=== PATIENT | male | born 1945 | race Hispanic/Latino ===

== ENCOUNTER 2016-08-24 19:43 | Emergency (ER) | payer MEDICARE ==
--- NOTE | 2016-08-24 20:36 | Emergency Department Report ---
HPI - General Chief Complaint: Extremity Problem,Nontraumatic Time Seen by Provider: 08/24/16 20:01 - HPI HPI: This is a 71-year-old Afro-[place] male presents the emergency department via [facility] a [facility] with the complaint of possible swollen right hand and arm. The patient himself appears to have some level of dementia and is currently AAO [address] not time. Therefore he is a poor historian and has no complaints. Allegedly his son visited him today and thought the arm appeared warm and swollen and sent him in for further evaluation. Based on the patient's medications he does appear to have some history of dementia, hypertension, BPH and previously was here for arthritis. As of February of last year the patient was on Eloquist but I'm unsure as to when he takes it for. ED Past Medical Hx - Past Medical History Hx Hypertension: Yes Hx Dementia: Yes Additional medical history: unsteady gait, gout - Social History Smoking Status: Unknown if ever smoked Substance Use Type: None - Medications Home Medications: Home Medications Medication Instructions Recorded Confirmed Last Taken Type LORazepam [Ativan] 0.5 mg PO BID PRN 03/06/16 08/24/16 03/05/16 History Budesoni/Formotero 160-4.5(Nf) 2 puff IH BID #1 03/09/16 08/24/16 08/23/16 Rx [Symbicort 160-4.5 (Nf)] Donepezil [Aricept] 5 mg PO BID #60 03/09/16 08/24/16 08/23/16 Rx Folic Acid [Folvite] 1 mg PO QDAY #30 03/09/16 08/24/16 08/23/16 Rx Lisinopril [Zestril TAB] 20 mg PO QDAY #30 tablet 03/09/16 08/24/16 08/23/16 Rx Megestrol [Megace] 40 ml PO BID #30 oral.liqd 03/09/16 08/24/16 08/23/16 Rx Memantine HCl [Namenda Xr] 28 mg PO DAILY #30 03/09/16 08/24/16 08/23/16 Rx Metoprolol [Lopressor TAB] 25 mg PO BID #60 tablet 03/09/16 08/24/1617 Rx Multivit-Min/FA/Lycopen/Lutein 1 each PO DAILY #30 03/09/16 08/24/16 08/23/16 Rx [Centrum Silver Tablet] Pravastatin Sodium [Pravastatin] 80 mg PO QHS #30 03/09/16 08/24/16 08/23/16 Rx Tamsulosin [Flomax] 0.4 mg PO QDAY #30 03/09/16 08/24/16 08/23/16 Rx traMADol [Ultram] 50 mg PO Q6HR PRN #14 tablet 04/29/16 08/24/16 Unknown Rx Ibuprofen [Motrin 800 MG tab] 600 mg PO Q8HR PRN 08/24/16 08/24/16 08/23/16 History Quetiapine Fumarate [SEROquel] 50 mg PO QDAY 08/24/16 08/24/16 08/23/16 History amLODIPine [Norvasc] 5 mg PO DAILY 08/24/16 08/24/16 08/23/16 History ED Review of Systems ROS: Stated complaint: SWOLLEN RT ARM/HAND Other details as noted in HPI Comment: Unobtainable due to pts medical conditions Physical Exam - Physical Exam Vital Signs: Vital Signs 08/24/16 20:05 Temperature 99.2 F Pulse Rate 62 Respiratory 18 Rate Blood Pressure 105/50 O2 Sat by Pulse 100 Oximetry Physical Exam: GENERAL: The patient is well-developed well-nourished. HEENT: Normocephalic. Atraumatic. Extraocular motions are intact. Patient has moist mucous membranes. Pupils equal reactive to light bilaterally. NECK: Supple. Trachea is midline. CHEST/LUNGS: Clear to auscultation. There is no respiratory distress noted. HEART/CARDIOVASCULAR: Regular. There is no tachycardia. There is no gallop rub or murmur. ABDOMEN: Abdomen is soft, nontender. Patient has normal bowel sounds. There is no abdominal distention. SKIN: Skin is warm and dry. There is very mild swelling of the right hand when compared to the left. There is no skin color change, fluctuance, warmth. NEURO: The patient is awake, alert. AAO [address] but not time. The patient is cooperative. The patient has no focal neurologic deficits. The patient has normal speech. MUSCULOSKELETAL: There is no tenderness or deformity. There is no limitation range of motion. There is no evidence of acute injury. ED Course Vital Signs 08/24/16 20:05 Temperature 99.2 F Pulse Rate 62 Respiratory 18 Rate Blood Pressure 105/50 O2 Sat by Pulse 100 Oximetry ED Medical Decision Making - Lab Data Result diagrams: 08/24/16 20:51 08/24/16 20:51 - Radiology Data Radiology results: image reviewed interpreted by me: X-ray of the right hand does not show any fracture, dislocation, osteomyelitis. - Medical Decision Making 71-year-old male sent in as he had developed some right hand and distal forearm swelling and some redness witnessed by family. By the time the patient got to the emergency department there is no significant appreciable swelling or signs of cellulitis. Patient's labs are mostly unremarkable. There is no significant leukocytosis. No significant electrolyte abnormalities, renal insufficiency or glucose abnormalities and he has a normal lactic acid level. An x-ray was done of the right hand does not show any occult fracture, dislocation or any signs of infection. Family eventually did come bedside and says that they were concerned about the size and color of the hand, since he previously had a DVT in that right upper extremity, but they admit that the hand and forearm looks greatly improved from when they sent him in. Patient does not appear to have any requirement for admission at this time but he was given a prescription/or for an outpatient ultrasound of the right upper extremity, and family will see to it that he can get the imaging done. If it is positive, he will be redirected the emergency department. Otherwise he will be encouraged to follow-up with his primary care physician. - Differential Diagnosis cellulitis, DVT, venous stasis, lymphedema Critical Care Time: No Critical care attestation.: If time is entered above; I have spent that time in minutes in the direct care of this critically ill patient, excluding procedure time. ED Disposition Clinical Impression: Swelling of right hand Disposition: DC-01 TO HOME OR SELFCARE Is pt being admited?: No Condition: Stable Additional Instructions: Please follow up at the outpatient imaging portion of [facility] tomorrow for a venous Doppler ultrasound of the right upper extremity to rule out a blood clot as the cause of the hand swelling that occurred. There is a number listed on the discharge paperwork for you or someone to call first thing in the morning to make an appointment for the outpatient imaging. If it is positive for a blood clot, he will be redirected to the emergency department for appropriate further evaluation and treatment. If negative, follow up with the primary care doctor as previously planned. Return to the ER with any worsening of your symptoms or any acute distress. Referrals: PRIMARY CARE, [Primary Care Provider] - 3-5 Days Time of Disposition: 23:21
[2016-08-24 21:16] LABS: Basophils % (Auto) 0.3 % (0.0-1.8); Eosinophils % (Auto) 1.5 % (0.0-4.3); Hematocrit 30.3 % (35.5-45.6); Hemoglobin 10.1 gm/dl (11.8-15.2); Mean Corpuscular HGB Conc 33 % (32-34); Mean Corpuscular Hemoglobin 29 pg (28-32); Mean Corpuscular Volume 86 fl (84-94); Platelet Count 266 K/mm3 (140-440); Red Blood Count 3.51 M/mm3 (3.65-5.03); Red Cell Distribution Width 15.2 % (13.2-15.2); White Blood Count 10.8 K/mm3 (4.5-11.0)
[2016-08-24 21:29] LABS: INR 1.08 (0.87-1.13)
[2016-08-24 21:30] LABS: Partial Thromboplastin Time 25.7 Sec. (24.2-36.6)
[2016-08-24 21:31] LABS: Anion Gap 18 mmol/L; BUN/Creatinine Ratio 24.44; Blood Urea Nitrogen 22 mg/dL (9-20); Calcium 9.3 mg/dL (8.4-10.2); Carbon Dioxide 21 mmol/L (22-30); Chloride 107.8 mmol/L (98-107); Glucose 96 mg/dL (75-100); Potassium 4.1 mmol/L (3.6-5.0); Sodium 143 mmol/L (137-145)
[2016-08-25 02:09] VITALS: BP 126/51
--- NOTE | 2016-08-25 07:33 | XRay Report ---
RIGHT HAND, 3 views: History: Right hand swelling. Mild osteopenia. Mild diffuse osteoarthritic changes are identified. No evidence for bony erosions, fracture, periostitis or bone lesion. No soft tissue abnormality is appreciated. IMPRESSION: Chronic findings as described. No acute process appreciated.
== END 2016-08-25 02:10 | disposition home or self-care (01) ==
LOC: ED 19:43
DX: M79.89 Other specified soft tissue disorders (principal); F03.90 Unspecified dementia, unspecified severity, without behavioral disturbance, psychotic disturbance, mood disturbance, and anxiety
CPT/HCPCS: 36415; 80048; 82140; 85025; 85610; 85730; 99284

== ENCOUNTER 2016-09-07 11:04 | Outpatient (CLI) | payer MEDICARE ==
--- NOTE | 2016-09-08 09:17 | Magnetic Resonance Report ---
MRI scan lumbar spine: History: Lumbar radiculopathy with spondylosis. Technique: Multiplanar, multisequence images were obtained without contrast injection. Findings: Conus medullaris terminates at L1 with normal signal intensity. Normal lumbar lordosis. Normal pre-and paravertebral soft tissue. Normal height and signal intensity of vertebral bodies. Decrease in height and signal intensity of L2-L3, L3-L4 and L4-L5 secondary to degenerative changes. L1-L2. Bilateral moderate neural foramina narrowing secondary to degenerative diffuse disc bulge and degenerative facet joints. Mild central canal spinal stenosis. L2-L3. Severe bilateral neural foramina narrowing and severe central canal spinal stenosis secondary to degenerative diffuse disc bulge and degenerative facet joints. L3-L4. Severe bilateral neural foramina narrowing and severe central canal spinal stenosis secondary to degenerative diffuse disc bulge and degenerative facet joint and suspected mild ligamenta flava hypertrophy. L4-5. Severe bilateral neuroforaminal narrowing and severe central canal spinal stenosis secondary to degenerative diffuse disc bulge and degenerative facet joints and ligamenta flava hypertrophy. L5-S1. Moderate bilateral neural foramina narrowing and mild central canal spinal stenosis secondary to degenerative disc and degenerative facet joints. Impression: Multilevel bilateral neuroforaminal narrowing and central canal spinal stenosis as detailed above. No extrusion or sequestration of disc. L2-L3.
== END 2016-09-07 11:05 | disposition home or self-care (01) ==
LOC: MRI 11:04
PROVIDERS: ATTEND Orthopaedic Surgery
DX: M48.07 Spinal stenosis, lumbosacral region (principal); M47.27 Other spondylosis with radiculopathy, lumbosacral region; M24.28 Disorder of ligament, vertebrae; M40.46 Postural lordosis, lumbar region; I10 Essential (primary) hypertension; F03.90 Unspecified dementia, unspecified severity, without behavioral disturbance, psychotic disturbance, mood disturbance, and anxiety; Z72.0 Tobacco use; Z79.899 Other long term (current) drug therapy
CPT/HCPCS: 72148